=== PATIENT | female | born 1990 | race Caucasian/White ===

== ENCOUNTER 2020-11-23 18:15 | Inpatient (IN) ==
[2020-11-23] MEDS ORDERED: Ondansetron 4 MG/2 ML VIAL IVP PRN (18:17)
[2020-11-23] MEDS ORDERED: Naloxone 0.4 MG/ML INJ IVP PRN (18:17)
[2020-11-23] MEDS ORDERED: Metoclopramide 10 MG/2 ML VIAL IVP PRN (18:17)
[2020-11-23] MEDS ORDERED: Famotidine 20 MG/2 ML VIAL IVP PRN (18:17)
[2020-11-23] MEDS ORDERED: Ringers Solution, Lactated 1,000 ML IVC SCH (18:30)
[2020-11-23] MEDS ORDERED: Oxytocin 20 units/ LR 1000 mL 20 UNIT/1,000 ML BAG IVC SCH (18:30)
[2020-11-23 19:21] LABS: Basophils % 0.2 %; Eosinophils # 0.1 K/mcL (0.0-0.6); Eosinophils % 0.4 %; Hematocrit 39.4 % (35.3-44.9); Hemoglobin 12.9 g/dL (11.5-15.4); Immature Granulocytes % 0.4 % (0-4); Lymphocytes # 2.6 K/mcL (0.6-4.6); Lymphocytes % 19.8 %; Mean Corpuscular HGB Conc 32.7 g/dL (31.6-35.5); Mean Corpuscular Hemoglobin 30.4 pg (28.0-33.3); Mean Corpuscular Volume 92.9 fL (83.0-100.0); Mean Platelet Volume 11.4 fL (9.4-12.4); Monocytes # 0.8 K/mcL (0.0-1.3); Monocytes % 6.1 %; Neutrophils # 9.6 K/mcL (1.6-8.9); Platelet Count 238 K/mcL (140-400); Red Blood Count 4.24 M/mcL (3.82-4.97); Red Cell Distribution Width 12.7 % (11.5-14.5); Segmented Neutrophils % 73.1 %; White Blood Count 13.1 K/mcL (4.3-11.1)
[2020-11-23 19:34] LABS: Amphetamine Screen,Urine Negative ng/mL (Cutoff=1000); Barbiturate Screen,Urine Negative ng/mL (Cutoff=200); Benzodiazepines Screen,Urine Negative ng/mL (Cutoff=200); Cannabinoid Screen,Urine Negative ng/mL (Cutoff = 50); Cocaine Screen,Urine Negative ng/mL (Cutoff= 300); Opiate Screen,Urine Negative ng/mL (Cutoff=300); Phencyclidine Screen,Urine Negative ng/mL (Cutoff=25)
[2020-11-24] MEDS ORDERED: Lidocaine 1% 20 ML MDV ONE (02:23)
[2020-11-24] MEDS ORDERED: Benzocaine/Menthol 56 GM AEROSOL SPRAY TP PRN (05:19)
[2020-11-24] MEDS ORDERED: Rho Immune Globulin 1,500 UNIT SYRINGE IM PRN (05:19)
[2020-11-24] MEDS ORDERED: Acetaminophen 325 MG TABLET PO PRN (05:19)
[2020-11-24] MEDS ORDERED: Oxytocin 20 units/ LR 1000 mL 20 UNIT/1,000 ML BAG IVC ONE (05:19)
[2020-11-24] MEDS ORDERED: Ibuprofen 600 MG TABLET PO PRN (05:19)
[2020-11-24] MEDS ORDERED: Oxytocin 20 units/ LR 1000 mL 20 UNIT/1,000 ML BAG IVC SCH (05:19)
[2020-11-24] MEDS ORDERED: Sennosides 8.6 MG TABLET PO PRN (05:19)
[2020-11-24] MEDS ORDERED: Measles/Mumps/Rubella Vacc 0.5 ML VIAL SQ PRN (05:19)
[2020-11-24] MEDS: Prenatal Vit/FA 1 EACH TABLET PO SCH (08:04)
[2020-11-25 03:40] LABS: Basophils # 0.1 K/mcL (0.0-0.2); Basophils % 0.3 %; Eosinophils % 0.2 %; Hematocrit 35.9 % (35.3-44.9); Hemoglobin 11.9 g/dL (11.5-15.4); Immature Granulocytes % 0.6 % (0-4); Lymphocytes # 3.7 K/mcL (0.6-4.6); Lymphocytes % 20.6 %; Mean Corpuscular HGB Conc 33.1 g/dL (31.6-35.5); Mean Corpuscular Hemoglobin 31.1 pg (28.0-33.3); Mean Corpuscular Volume 93.7 fL (83.0-100.0); Mean Platelet Volume 11.1 fL (9.4-12.4); Monocytes % 5.9 %; Neutrophils # 12.9 K/mcL (1.6-8.9); Platelet Count 208 K/mcL (140-400); Red Blood Count 3.83 M/mcL (3.82-4.97); Red Cell Distribution Width 13.1 % (11.5-14.5); Segmented Neutrophils % 72.4 %; White Blood Count 17.7 K/mcL (4.3-11.1)
[2020-11-25] MEDS: Prenatal Vit/FA 1 EACH TABLET PO SCH (09:40)
[2020-11-25 12:56] VITALS: BP 106/68
== END 2020-11-25 13:10 | disposition home or self-care (01) | DRG 807 ==
LOC: 1NENULAB 18:15 → 1NENUOBS 11-24 05:20
PROVIDERS: ADMIT Student in an Organized Health Care Education/Training Program; ATTEND Student in an Organized Health Care Education/Training Program